=== PATIENT | female | born 1995 | race Caucasian/White ===

== ENCOUNTER 2022-10-24 20:00 | Emergency (ER) | payer BC, OTHER ==
[2022-10-24 20:11] VITALS: BP 135/84; PULSE 84; RESP 18; TEMP 98; BMI 41.9
[2022-10-24] MEDS ORDERED: METHOCARBAMOL 500 MG TABLET PO ONE (21:32)
[2022-10-24] MEDS ORDERED: IBUPROFEN 600 MG TABLET (FP) PO ONE ×2 (21:32→21:34)
[2022-10-24] MEDS ORDERED: METHOCARBAMOL 500 MG TABLET ONE (21:34)
== END 2022-10-24 22:21 | disposition home or self-care (01) ==
LOC: JERFT 20:00
DX: S01.81XA Laceration without foreign body of other part of head, initial encounter (principal); S09.90XA Unspecified injury of head, initial encounter; M25.561 Pain in right knee; M54.50 Low back pain, unspecified; V49.50XA Passenger injured in collision with unspecified motor vehicles in traffic accident, initial encounter
CPT/HCPCS: 73562-TC-RT-FY; 99283-25